=== PATIENT | female | born 1980 | race Two or more races ===

== ENCOUNTER 2018-08-22 06:22 | Emergency (ER) | payer MEDICAID ==
[~2018-08-22] VITALS: Ht 152.4 cm; Wt 36.3 kg
--- NOTE | 2018-08-22 06:30 | NUR ---
ER Nurse Note: Pt BIBA 861 from [place] c/o abd and back pain; 8/10 aching and constant pain. 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 years ago. Pt stated "the pain is in the jaw is associated abd and back pain. Pt a&ox4, no signs of distress, stable. Will continue to [facility].
[2018-08-22 06:31] VITALS: BP 150/92
[2018-08-22] MEDS ORDERED: Dicyclomine HCl 10mg/5ml oral soln ORAL ONE (06:45)
[2018-08-22] MEDS ORDERED: Mylanta II UD 30ml ORAL ONE (06:45)
[2018-08-22] MEDS ORDERED: Lidocaine 2% Visc 15ml soln ORAL ONE (06:45)
--- NOTE | 2018-08-22 06:49 | NUR ---
ER Nurse Note: All orders completed per ERMD orders; awaiting results. Pt tolerated all oral meds well. Will continue to [facility].
[2018-08-22 06:52] LABS: APPEARANCE,URINE CLOUDY; BILIRUBIN, URINE NEGATIVE (NEGATIVE); COLOR,URINE PALE YELLOW; GLUCOSE, URINE (UA) NEGATIVE (NEGATIVE); KETONES,URINE NEGATIVE (NEGATIVE); LEUKOCYTE ESTERASE ,URINE 1+ (NEGATIVE); NITRITE,URINE NEGATIVE (NEGATIVE); PH,URINE 7 (4.5-8.0); PROTEIN,URINE NEGATIVE (NEGATIVE); UROBILINOGEN,URINE NORMAL MG/DL (0.0-1.0)
[2018-08-22 06:58] LABS: ANION GAP 7 mmol/L (5-15); BLOOD UREA NITROGEN 6 mg/dL (7-18); CALCIUM 9.1 MG/DL (8.5-10.1); CARBON DIOXIDE 27 MMOL/L (21-32); CHLORIDE 100 MMOL/L (98-107); CREATININE 0.7 MG/DL (0.55-1.30); POTASSIUM 3.2 MMOL/L (3.5-5.1); SODIUM 134 MMOL/L (136-145)
--- NOTE | 2018-08-22 07:00 | Emergency Room Report ---
History of Present Illness General Chief Complaint: Abdominal Pain Source: Patient Present Illness HPI 37 yo F presents to ED c/o abd pain. brought in by EMS. pain started yesterday. dull, epigastric 7/10 nonradiating. notes nausea, denies vomiting. denies fevers or chills. also c/o jaw pain x 2 days. 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 states it was benign. patient did not undergo any chemo or radiation. no other aggravating or reliving factors. denies any other associated symptoms. Allergies: Coded Allergies: No Known Allergies (Unverified , 08/22/18) Patient History Past Medical History: none Past Surgical History: none Pertinent Family History: none Social History: Denies: smoking, alcohol use, drug use Last Menstrual Period: unk Now: No Immunizations: UTD Reviewed Nursing Documentation: PMH: Agreed; PSxH: Agreed Nursing Documentation-PMH Past Medical History: No History, Except For Review of Systems All Other Systems: negative except mentioned in HPI Physical Exam Vital Signs Date Time Temp Pulse Resp B/P (MAP) Pulse Ox O2 Delivery O2 Flow Rate FiO2 08/22/18 06:16 98.1 88 16 150/92 (111) 98 Room Air Sp02 EP Interpretation: reviewed, normal General Appearance: no apparent distress, alert, GCS 15, non-toxic Head: normocephalic, atraumatic Eyes: bilateral eye normal inspection, bilateral eye PERRL ENT: other - multiple dental caries. no abscess Neck: full range of motion, supple/symm/no masses Respiratory: chest non-tender, lungs clear, normal breath sounds, speaking full sentences Cardiovascular #1: regular rate, rhythm, no edema Cardiovascular #2: 2+ carotid (R), 2+ carotid (L), 2+ radial (R), 2+ radial (L) , 2+ dorsalis pedis (R), 2+ dorsalis pedis (L) Gastrointestinal: normal bowel sounds, soft, non-distended, no guarding, no rebound, tenderness Rectal: deferred Genitourinary: normal inspection, no CVA tenderness Musculoskeletal: back normal, gait/station normal, normal range of motion, non- tender Neurologic: alert, oriented x3, responsive, motor strength/tone normal, sensory intact, speech normal Psychiatric: judgement/insight normal, memory normal, mood/affect normal, no suicidal/homicidal ideation Reflexes: 3+ bicep (R), 3+ bicep (L), 3+ tricep (R), 3+ tricep (L), 3+ knee (R) , 3+ knee (L) Skin: normal color, no rash, warm/dry, well hydrated Lymphatic: no adenopathy Medical Decision Making Diagnostic Impression: Primary Impression: Abdominal pain Qualified Codes: R10.10 - Upper abdominal pain, unspecified ER Course Hospital Course 37-year-old F presents to ED with abdominal pain Differential diagnosis includes-appendicitis, cholecystitis, small bowel obstruction, gastritis, Clinical course Patient placed on stretcher. After initial history and physical I ordered labs , IV fluids, pain medications and CT scan Labs - no leukocytosis, electrolytes ok, LFTs normal, UA unremarkable CT scan shows no acute pathology Has multiple dental caries. No signs of abscess or active infection. Recommend patient follow-up with oral surgery. Will provide referrals. Homeless checklist completed I feel this is a highly complex case requiring extensive working including EKG/ Rhythm strip, Xray/CT/US, Blood/urine lab work, repeat exams while in ED, and administration of strong opiates/narcotics for pain control, admission to hospital or close patient follow up. Diagnosis - abdominal pain Stable and discharged to home. Followup with PMD. Return to ED if symptoms recur or worsen Labs Test 08/22/18 06:30 White Blood Count 11.3 K/UL (4.8-10.8) Red Blood Count 4.24 M/UL (4.20-5.40) Hemoglobin 13.4 G/DL (12.0-16.0) Hematocrit 39.6 % (37.0-47.0) Mean Corpuscular Volume 93 FL (80-99) Mean Corpuscular Hemoglobin 31.5 PG (27.0-31.0) Mean Corpuscular Hemoglobin Concent 33.8 G/DL (32.0-36.0) Red Cell Distribution Width 12.8 % (11.6-14.8) Platelet Count 251 K/UL (150-450) Mean Platelet Volume 6.5 FL (6.5-10.1) Neutrophils (%) (Auto) 77.1 % (45.0-75.0) Lymphocytes (%) (Auto) 15.0 % (20.0-45.0) Monocytes (%) (Auto) 6.8 % (1.0-10.0) Eosinophils (%) (Auto) 0.5 % (0.0-3.0) Basophils (%) (Auto) 0.7 % (0.0-2.0) Urine Color Pale yellow Urine Appearance Cloudy Urine pH 7 (4.5-8.0) Urine Specific Badger 1.015 (1.005-1.035) Urine Protein Negative (NEGATIVE) Urine Glucose (UA) Negative (NEGATIVE) Urine Ketones Negative (NEGATIVE) Urine Blood Negative (NEGATIVE) Urine Nitrite Negative (NEGATIVE) Urine Bilirubin Negative (NEGATIVE) Urine Urobilinogen Normal MG/DL (0.0-1.0) Urine Leukocyte Esterase 1+ (NEGATIVE) Urine RBC 0 /HPF (0 - 2) Urine WBC 2-4 /HPF (0 - 2) Urine Squamous Epithelial Cells Few /LPF (NONE/OCC) Urine Transitional Epithelial Cells /LPF (NONE) Urine Amorphous Sediment Many /LPF (NONE) Urine Bacteria Occasional /HPF (NONE) Urine HCG, Qualitative Negative (NEGATIVE) Sodium Level 134 MMOL/L (136-145) Potassium Level 3.2 MMOL/L (3.5-5.1) Chloride Level 100 MMOL/L (98-107) Carbon Dioxide Level 27 MMOL/L (21-32) Anion Gap 7 mmol/L (5-15) Blood Urea Nitrogen 6 mg/dL (7-18) Creatinine 0.7 MG/DL (0.55-1.30) Estimat Glomerular Filtration Rate > 60 mL/min (>60) Glucose Level 107 MG/DL (74-106) Calcium Level 9.1 MG/DL (8.5-10.1) Total Bilirubin 0.7 MG/DL (0.2-1.0) Aspartate Amino Transf (AST/SGOT) 16 U/L (15-37) Alanine Aminotransferase (ALT/SGPT) 19 U/L (12-78) Alkaline Phosphatase 77 U/L (46-116) Total Protein 8.1 G/DL (6.4-8.2) Albumin 3.9 G/DL (3.4-5.0) Globulin 4.2 g/dL Albumin/Globulin Ratio 0.9 (1.0-2.7) Lipase 98 U/L (73-393) CT/MRI/US Diagnostic Results CT/MRI/US Diagnostic Results : Imaging Test Ordered: CT A/P Impression Findings: Lung bases are clear. The appendix is not identified but there are no secondary signs of acute appendicitis in the expected location of the appendix. There is no abscess or free fluid. Uterus noted. There is a rim-enhancing left ovarian cyst measuring 1.5 cm. Bowel gas pattern is nonobstructive. No free air identified. Small fat-containing 8 mm focus in the left kidney consistent with a angiomyolipoma noted. 1 cm cyst in the left kidney noted. Other tiny hypodensities within both kidneys may be cysts but too small to characterize. Gallbladder is unremarkable. Adrenal glands, pancreas, spleen and liver appear unremarkable. There is mild periportal edema nonspecific in nature. Last Vital Signs Date Time Temp Pulse Resp B/P (MAP) Pulse Ox O2 Delivery O2 Flow Rate FiO2 08/22/18 06:31 98.1 96 16 150/92 98 Room Air Status: improved Disposition: HOME, SELF-CARE Condition: Stable Scripts Acetaminophen* (TYLENOL EXTRA STRENGTH*) 500 Mg Tablet 500 MG ORAL Q8H PRN for Prn Headache/Temp > 101, #30 TAB 0 Refills Prov: Ousmane Harris MD 08/22/18 Ondansetron Odt* (ZOFRAN ODT*) 4 Mg Tab.rapdis 4 MG BC EVERY 6 HOURS PRN for Nausea & Vomiting, #20 TAB 0 Refills Prov: Ousmane Harris MD 08/22/18 Ranitidine Hcl* (ZANTAC*) 150 Mg Tablet 150 MG ORAL TWICE A DAY, #30 TAB Prov: Ousmane Harris MD 08/22/18 Ousmane Harris MD Aug 22, 2018 07:00
[2018-08-22 07:02] LABS: ALANINE AMINOTRANSFERASE 19 U/L (12-78); ALBUMIN 3.9 G/DL (3.4-5.0); ALBUMIN/GLOBULIN RATIO 0.9 (1.0-2.7); ALKALINE PHOSPHATASE 77 U/L (46-116); ASPARTATE AMINO TRANSFERASE 16 U/L (15-37); BILIRUBIN,TOTAL 0.7 MG/DL (0.2-1.0)
[2018-08-22 07:06] LABS: BASOPHILS % (AUTO) 0.7 % (0.0-2.0); EOSINOPHILS % (AUTO) 0.5 % (0.0-3.0); HEMATOCRIT 39.6 % (37.0-47.0); HEMOGLOBIN 13.4 G/DL (12.0-16.0); MEAN CORPUSCULAR VOLUME 93 FL (80-99); MONOCYTES % (AUTO) 6.8 % (1.0-10.0); NEUTROPHILS % (AUTO) 77.1 % (45.0-75.0); PLATELET COUNT 251 K/UL (150-450); RED BLOOD COUNT 4.24 M/UL (4.20-5.40); RED CELL DISTRIBUTION WIDTH 12.8 % (11.6-14.8); WHITE BLOOD COUNT 11.3 K/UL (4.8-10.8)
--- NOTE | 2018-08-22 07:10 | NUR ---
ER Nurse Note: Report given to MARY Claudio for continuty of care. Pt stable.
[2018-08-22] MEDS ORDERED: Morphine Sulfate 4mg/ml Inj (IV USE ONLY) IVP ONE (07:15)
[2018-08-22] MEDS ORDERED: Isovue-300 100ml vial INJ PRN (07:15)
--- NOTE | 2018-08-22 07:50 | NUR ---
ED Nurse Note: PT TAKEN TO CT VIA [facility].
--- NOTE | 2018-08-22 08:05 | NUR ---
ED Nurse Note: PT CAME BACK FROM CT.
--- NOTE | 2018-08-22 08:32 | NUR ---
ED Nurse Note: PT RESTING ON BED AND WAITING FOR CT RESULTS.
[2018-08-22] MEDS ORDERED: ONDANSETRON ODT4 MG BC (08:39)
[2018-08-22] MEDS ORDERED: TYLENOL EXTRA500 MG ORAL (08:39)
[2018-08-22] MEDS ORDERED: RANITIDINE HCL150 MG ORAL (08:39)
[2018-08-22 08:48] VITALS: BP 165/90
--- NOTE | 2018-08-22 08:48 | NUR ---
ER DISCHARGE NOTE: Patient is cleared to be discharged per ERMD, pt is aox4, on room air, with stable vital signs. pt was given dc and prescription instructions and homeless forms signed by pt, resources provided, pt was able to verbalize understanding, pt id band and iv site removed without complications. pt is able to ambulate with steady gait. pt took all belongings.
--- NOTE | 2018-08-22 09:09 | Diagnostic Imaging Report ---
Indication: Abdominal pain Technique: Continuous helical transaxial imaging of the abdomen and pelvis was obtained from the lung bases to the pubic symphysis during intravenous contrast administration. Coronal 2-D reformats were also obtained. Study obtained in a Siemens sensation [address] Automatic Exposure Control was utilized. Total Dose length Product (DLP): 436.[address] Dose Index Volume (CTDIvol): 9.33 mGy Comparison: None Findings: Lung bases are clear. The appendix is not identified but there are no secondary signs of acute appendicitis in the expected location of the appendix. There is no abscess or free fluid. Uterus noted. There is a rim-enhancing left ovarian cyst measuring 1.5 cm. Bowel gas pattern is nonobstructive. No free air identified. Small fat-containing 8 mm focus in the left kidney consistent with a angiomyolipoma noted. 1 cm cyst in the left kidney noted. Other tiny hypodensities within both kidneys may be cysts but too small to characterize. Gallbladder is unremarkable. Adrenal glands, pancreas, spleen and liver appear unremarkable. There is mild periportal edema nonspecific in nature. IMPRESSION: No acute findings. Appendix not seen. No secondary signs of acute appendicitis. Left renal angiomyolipoma. Left renal cyst. Periportal edema nonspecific. The CT scanner at [facility] is accredited by the [employer] and the scans are performed using dose optimization techniques as appropriate to a performed exam including Automatic Exposure control.
== END 2018-08-22 08:48 | disposition home or self-care (01) ==
LOC: EDBD 06:22 → EMR 06:59
DX: R10.10 Upper abdominal pain, unspecified (principal); R11.0 Nausea; R68.84 Jaw pain; N28.1 Cyst of kidney, acquired
CPT/HCPCS: 36415; 74177; 80053; 81003; 81025; 83690; 85025; 96361; 96374; 96375; 99284; J2270; J2405; Q9967; S0028